=== PATIENT | male | born 1975 ===

== ENCOUNTER 2023-05-14 21:14 | Inpatient (IN) | payer OTHER ==
[2023-05-14 21:28] VITALS: BMI 50.6
[2023-05-14] MEDS: ALBUTEROL SO4 2.5/IPRATROPIUM 0.5 INH SOL 3 ML VIAL.NEB. NEB SCH ×4 (23:13→23:57)
[2023-05-14 23:25] LABS: BASO % 0.3 % (0-2.0); EOS % 0.6 % (0-4.5); HEMOGLOBIN 15.3 GM/dL (11.7-16.9); LYMPH % 20.9 % (8-40); MCH 28.7 pg (25.7-33.7); MCHC 34.1 g/dl (32.0-35.9); MEAN CELL VOLUME 84.3 fl (80-96); MEAN PLT VOLUME 7.1 fl (7.5-11.1); MONO % 8.2 % (3.8-10.2); PLATELET COUNT 322 10^3/uL (134-434); RBC 5.34 M/mm3 (4.00-5.60); RDW 14.5 % (11.9-15.9); WHITE BLOOD COUNT 9.2 K/mm3 (4.0-10.0)
[2023-05-14 23:43] LABS: METHADONE, UR NEGATIVE (NEGATIVE); POTASSIUM 4.8 mmol/L (3.5-5.1); URINE AMPHETAMINES NEGATIVE (NEGATIVE); URINE BARBITURATES NEGATIVE (NEGATIVE)
[2023-05-14 23:44] LABS: PHENCYCLIDINE,URINE NEGATIVE (NEGATIVE); URINE BENZODIAZEPINES NEGATIVE (NEGATIVE)
[2023-05-14 23:47] LABS: CALCIUM 8.6 mg/dL (8.5-10.1)
[2023-05-14 23:48] LABS: ALBUMIN 3.1 g/dl (3.4-5.0); BLOOD UREA NITROGEN 13.8 mg/dL (7-18)
[2023-05-14 23:51] LABS: CREATININE 0.9 mg/dL (0.55-1.3)
[2023-05-14 23:53] LABS: TOT PROT 8.4 g/dl (6.4-8.2)
[2023-05-14 23:59] LABS: COCAINE, UR POSITIVE (NEGATIVE); OPIATES, URI POSITIVE (NEGATIVE)
[2023-05-15 00:32] LABS: BILIRUBIN,TOTAL 0.3 mg/dL (0.2-1)
[2023-05-15 02:38] LABS: EPI CELLS 5 /uL (0-25.1); HYALINE CASTS 3 /uL (0-3.1); PH,URINE 6.5 (5.0-8.0); URINE APPEARANCE CLOUDY; URINE BACTERIA 2875 /uL (0-1359); URINE BILIRUBIN NEGATIVE (NEGATIVE); URINE COLOR YELLOW; URINE GLUCOSE (UA) NEGATIVE (NEGATIVE); URINE KETONE NEGATIVE (NEGATIVE); URINE LEUK ESTERASE 3+ (NEGATIVE); URINE NITRITE POSITIVE (NEGATIVE); URINE PROTEIN 1+ (NEGATIVE); URINE RBC 221 /uL (0-23.9); URINE UROBILINOGEN 0.2 mg/dL (0.2-1.0); URINE WBC 3339 /uL (0-25.8)
[2023-05-15] MEDS ORDERED: CEFTRIAXONE 1 GM/50 ML BAG ONE ×2 (04:38→10:03)
[2023-05-15] MEDS ORDERED: ACETAMINOPHEN 500 MG TABLET (FP) PO PRN (09:40)
[2023-05-15] MEDS ORDERED: MELATONIN 5 MG TABLETS PO PRN (09:40)
[2023-05-15] MEDS ORDERED: METOCLOPRAMIDE HCL INJECTION 10 MG/2 ML VIAL IVPUSH ONE (09:52)
[2023-05-15] MEDS ORDERED: METOCLOPRAMIDE HCL INJECTION 10 MG/2 ML VIAL ONE (10:03)
[2023-05-15] MEDS ORDERED: ENOXAPARIN NA (PORCINE) 40 MG/0.4 ML DISP.SYRIN SQ ONE (10:03)
[2023-05-15] MEDS: CEFTRIAXONE 1 GM in DEXTROSE 5%-WATER - 50 ML IVPB SCH (10:04)
[2023-05-15] MEDS: ENOXAPARIN NA (PORCINE) 40 MG/0.4 ML DISP.SYRIN SQ SCH (10:04)
[2023-05-15] MEDS: INSULIN SLIDING SCALE (NOVOLOG) 1 VIAL SQ SCH ×3 (10:41→22:35)
[2023-05-16] MEDS: INSULIN SLIDING SCALE (NOVOLOG) 1 VIAL SQ SCH ×4 (06:44→21:49)
[2023-05-16 09:49] LABS: BASO % 0.7 % (0-2.0); EOS % 0.4 % (0-4.5); HEMATOCRIT 45.4 % (35.4-49); HEMOGLOBIN 15.4 GM/dL (11.7-16.9); LYMPH % 32.7 % (8-40); MCH 28.7 pg (25.7-33.7); MCHC 33.9 g/dl (32.0-35.9); MEAN CELL VOLUME 84.7 fl (80-96); MONO % 7.9 % (3.8-10.2); NEUT % 58.3 % (42.8-82.8); PLATELET COUNT 317 10^3/uL (134-434); RBC 5.36 M/mm3 (4.00-5.60); RDW 14.8 % (11.9-15.9); WHITE BLOOD COUNT 7.6 K/mm3 (4.0-10.0)
[2023-05-16 10:24] LABS: ALBUMIN 3.2 g/dl (3.4-5.0); BILIRUBIN,TOTAL 0.6 mg/dL (0.2-1); BLOOD UREA NITROGEN 14.6 mg/dL (7-18); CALCIUM 8.7 mg/dL (8.5-10.1); CREATININE 0.7 mg/dL (0.55-1.3); MAGNESIUM 2.1 mg/dL (1.8-2.4); PHOSPHOROUS 2.8 mg/dL (2.5-4.9); TOT PROT 8.5 g/dl (6.4-8.2)
[2023-05-16] MEDS ORDERED: CEFTRIAXONE 1 GM in DEXTROSE 5%-WATER - 50 ML IVPB SCH (11:00)
[2023-05-16] MEDS: ENOXAPARIN NA (PORCINE) 40 MG/0.4 ML DISP.SYRIN SQ SCH (12:04)
[2023-05-16] MEDS: CEFTRIAXONE 1 GM in DEXTROSE 5%-WATER - 50 ML IVPB SCH (14:03)
[2023-05-16] MEDS: PIPERACILLIN/TAZOB 3.375 GM 3.375 GM in DEXTROSE 5%-WATER - 50 ML IVPB SCH ×3 (14:56→21:44)
[2023-05-16] MEDS: GABAPENTIN 100 MG CAPSULE PO SCH (21:44)
[2023-05-17] MEDS: PIPERACILLIN/TAZOB 3.375 GM 3.375 GM in DEXTROSE 5%-WATER - 50 ML IVPB SCH ×3 (06:34→21:25)
[2023-05-17] MEDS: GABAPENTIN 100 MG CAPSULE PO SCH ×3 (06:34→21:25)
[2023-05-17] MEDS: INSULIN SLIDING SCALE (NOVOLOG) 1 VIAL SQ SCH ×4 (06:38→21:30)
[2023-05-17 08:20] LABS: BASO % 0.4 % (0-2.0); HEMATOCRIT 41.9 % (35.4-49); HEMOGLOBIN 14.3 GM/dL (11.7-16.9); LYMPH % 28.5 % (8-40); MCH 28.9 pg (25.7-33.7); MCHC 34.2 g/dl (32.0-35.9); MEAN CELL VOLUME 84.8 fl (80-96); MEAN PLT VOLUME 7.1 fl (7.5-11.1); MONO % 12.5 % (3.8-10.2); NEUT % 57.6 % (42.8-82.8); PLATELET COUNT 300 10^3/uL (134-434); RBC 4.95 M/mm3 (4.00-5.60); RDW 14.7 % (11.9-15.9); WHITE BLOOD COUNT 5.7 K/mm3 (4.0-10.0)
[2023-05-17 08:47] LABS: CALCIUM 8.4 mg/dL (8.5-10.1)
[2023-05-17 08:51] LABS: BLOOD UREA NITROGEN 16.8 mg/dL (7-18); CREATININE 0.7 mg/dL (0.55-1.3); PHOSPHOROUS 3.1 mg/dL (2.5-4.9)
[2023-05-17 08:52] LABS: TOT PROT 8.1 g/dl (6.4-8.2)
[2023-05-17 08:53] LABS: BILIRUBIN,TOTAL 0.6 mg/dL (0.2-1)
[2023-05-17] MEDS: ENOXAPARIN NA (PORCINE) 40 MG/0.4 ML DISP.SYRIN SQ SCH (10:13)
[2023-05-17] MEDS ORDERED: VANCOMYCIN 250 MG/5 ML ORAL SOLUTION PO SCH (17:05)
[2023-05-17] MEDS: VANCOMYCIN ORAL SOLUTION 125 MG/2.5 ML PO SCH (19:04)
[2023-05-18] MEDS: VANCOMYCIN ORAL SOLUTION 125 MG/2.5 ML PO SCH ×4 (01:58→17:08)
[2023-05-18] MEDS: GABAPENTIN 100 MG CAPSULE PO SCH ×3 (06:28→21:48)
[2023-05-18] MEDS: PIPERACILLIN/TAZOB 3.375 GM 3.375 GM in DEXTROSE 5%-WATER - 50 ML IVPB SCH ×3 (06:28→21:48)
[2023-05-18] MEDS: INSULIN SLIDING SCALE (NOVOLOG) 1 VIAL SQ SCH ×4 (06:32→21:47)
[2023-05-18 08:09] LABS: BASO % 0.9 % (0-2.0); EOS % 1.8 % (0-4.5); HEMOGLOBIN 14.4 GM/dL (11.7-16.9); LYMPH % 34.7 % (8-40); MCH 28.4 pg (25.7-33.7); MCHC 32.1 g/dl (32.0-35.9); MEAN CELL VOLUME 88.5 fl (80-96); MEAN PLT VOLUME 7.6 fl (7.5-11.1); MONO % 11.5 % (3.8-10.2); NEUT % 51.1 % (42.8-82.8); PLATELET COUNT 304 10^3/uL (134-434); RBC 5.09 M/mm3 (4.00-5.60); RDW 14.8 % (11.9-15.9); WHITE BLOOD COUNT 6.5 K/mm3 (4.0-10.0)
[2023-05-18 08:23] LABS: POTASSIUM 4.4 mmol/L (3.5-5.1)
[2023-05-18 08:32] LABS: CALCIUM 8.6 mg/dL (8.5-10.1)
[2023-05-18 08:33] LABS: ALBUMIN 3.1 g/dl (3.4-5.0); BLOOD UREA NITROGEN 14.8 mg/dL (7-18); MAGNESIUM 2.1 mg/dL (1.8-2.4)
[2023-05-18 08:35] LABS: CREATININE 0.7 mg/dL (0.55-1.3); PHOSPHOROUS 3.3 mg/dL (2.5-4.9)
[2023-05-18 08:37] LABS: BILIRUBIN,TOTAL 0.5 mg/dL (0.2-1); TOT PROT 8.4 g/dl (6.4-8.2)
[2023-05-18] MEDS: ENOXAPARIN NA (PORCINE) 40 MG/0.4 ML DISP.SYRIN SQ SCH (11:11)
[2023-05-18] MEDS ORDERED: IBUPROFEN 600 MG TABLET (FP) PO PRN ×2 (16:05→16:06)
[2023-05-19] MEDS: VANCOMYCIN ORAL SOLUTION 125 MG/2.5 ML PO SCH ×4 (00:51→17:11)
[2023-05-19] MEDS: GABAPENTIN 100 MG CAPSULE PO SCH ×3 (06:15→23:10)
[2023-05-19] MEDS: PIPERACILLIN/TAZOB 3.375 GM 3.375 GM in DEXTROSE 5%-WATER - 50 ML IVPB SCH ×3 (06:15→23:10)
[2023-05-19] MEDS: INSULIN SLIDING SCALE (NOVOLOG) 1 VIAL SQ SCH ×4 (06:17→23:17)
[2023-05-19] MEDS ORDERED: INSULIN (NOVOLOG) ASPART 100 UNITS/ML 10ML VIAL ONE (06:47)
[2023-05-19] MEDS ORDERED: INSULIN (LEVEMIR) 100 UNITS/ML UNITS SQ ONE (06:47)
[2023-05-19] MEDS: ENOXAPARIN NA (PORCINE) 40 MG/0.4 ML DISP.SYRIN SQ SCH (09:18)
[2023-05-19] MEDS ORDERED: HYDROmorphone HCL 2 MG TABLET PO PRN (09:23)
[2023-05-19] MEDS: HYDROmorphone HCL 2 MG TABLET PO PRN (17:19)
[2023-05-19] MEDS ORDERED: PIPERACILLIN/TAZOBACTAM 3.375 GM VIAL IVPB ONE (22:52)
[2023-05-20] MEDS: VANCOMYCIN ORAL SOLUTION 125 MG/2.5 ML PO SCH ×4 (00:41→17:42)
[2023-05-20] MEDS: HYDROmorphone HCL 2 MG TABLET PO PRN ×3 (00:58→19:47)
[2023-05-20] MEDS: PIPERACILLIN/TAZOB 3.375 GM 3.375 GM in DEXTROSE 5%-WATER - 50 ML IVPB SCH ×3 (05:55→21:52)
[2023-05-20] MEDS: GABAPENTIN 100 MG CAPSULE PO SCH ×3 (05:56→21:52)
[2023-05-20] MEDS: INSULIN SLIDING SCALE (NOVOLOG) 1 VIAL SQ SCH ×4 (06:21→21:52)
[2023-05-20 08:31] LABS: BASO % 0.4 % (0-2.0); HEMATOCRIT 41.8 % (35.4-49); HEMOGLOBIN 13.9 GM/dL (11.7-16.9); LYMPH % 42.3 % (8-40); MCH 28.6 pg (25.7-33.7); MCHC 33.2 g/dl (32.0-35.9); MEAN CELL VOLUME 86.3 fl (80-96); MEAN PLT VOLUME 7.4 fl (7.5-11.1); NEUT % 42.3 % (42.8-82.8); PLATELET COUNT 311 10^3/uL (134-434); RBC 4.84 M/mm3 (4.00-5.60); RDW 14.5 % (11.9-15.9); WHITE BLOOD COUNT 7.7 K/mm3 (4.0-10.0)
[2023-05-20 08:44] LABS: POTASSIUM 3.9 mmol/L (3.5-5.1)
[2023-05-20 08:47] LABS: BLOOD UREA NITROGEN 12.4 mg/dL (7-18)
[2023-05-20 08:48] LABS: CALCIUM 8.4 mg/dL (8.5-10.1)
[2023-05-20 08:49] LABS: MAGNESIUM 1.9 mg/dL (1.8-2.4)
[2023-05-20 08:50] LABS: CREATININE 0.7 mg/dL (0.55-1.3)
[2023-05-20 08:51] LABS: TOT PROT 7.8 g/dl (6.4-8.2)
[2023-05-20 08:52] LABS: BILIRUBIN,TOTAL 0.3 mg/dL (0.2-1)
[2023-05-20] MEDS: ENOXAPARIN NA (PORCINE) 40 MG/0.4 ML DISP.SYRIN SQ SCH (09:59)
[2023-05-20] MEDS ORDERED: DEXTROSE 5%-0.45% SALINE 1,000 ML IV ONE (13:00)
[2023-05-21] MEDS: VANCOMYCIN ORAL SOLUTION 125 MG/2.5 ML PO SCH ×4 (00:43→17:03)
[2023-05-21] MEDS: HYDROmorphone HCL 2 MG TABLET PO PRN ×3 (02:22→17:09)
[2023-05-21] MEDS: PIPERACILLIN/TAZOB 3.375 GM 3.375 GM in DEXTROSE 5%-WATER - 50 ML IVPB SCH (06:18)
[2023-05-21] MEDS: GABAPENTIN 100 MG CAPSULE PO SCH ×3 (06:19→21:35)
[2023-05-21] MEDS: INSULIN SLIDING SCALE (NOVOLOG) 1 VIAL SQ SCH ×4 (06:30→21:59)
[2023-05-21 10:37] LABS: BASO % 0.7 % (0-2.0); HEMATOCRIT 41.5 % (35.4-49); HEMOGLOBIN 14.2 GM/dL (11.7-16.9); LYMPH % 36.7 % (8-40); MCH 28.9 pg (25.7-33.7); MCHC 34.3 g/dl (32.0-35.9); MEAN CELL VOLUME 84.2 fl (80-96); MEAN PLT VOLUME 6.9 fl (7.5-11.1); NEUT % 50.6 % (42.8-82.8); PLATELET COUNT 309 10^3/uL (134-434); RBC 4.93 M/mm3 (4.00-5.60); RDW 14.8 % (11.9-15.9)
[2023-05-21 10:51] LABS: POTASSIUM 3.9 mmol/L (3.5-5.1)
[2023-05-21 10:53] LABS: CALCIUM 8.4 mg/dL (8.5-10.1)
[2023-05-21 10:54] LABS: MAGNESIUM 1.9 mg/dL (1.8-2.4)
[2023-05-21 10:56] LABS: BLOOD UREA NITROGEN 10.4 mg/dL (7-18)
[2023-05-21 10:57] LABS: CREATININE 0.6 mg/dL (0.55-1.3)
[2023-05-21 10:58] LABS: BILIRUBIN,TOTAL 0.4 mg/dL (0.2-1); TOT PROT 7.7 g/dl (6.4-8.2)
[2023-05-21] MEDS: ENOXAPARIN NA (PORCINE) 40 MG/0.4 ML DISP.SYRIN SQ SCH (11:10)
[2023-05-22] MEDS: VANCOMYCIN ORAL SOLUTION 125 MG/2.5 ML PO SCH ×3 (00:39→11:42)
[2023-05-22] MEDS: HYDROmorphone HCL 2 MG TABLET PO PRN ×3 (01:51→15:44)
[2023-05-22] MEDS: GABAPENTIN 100 MG CAPSULE PO SCH ×3 (06:17→21:47)
[2023-05-22] MEDS: INSULIN SLIDING SCALE (NOVOLOG) 1 VIAL SQ SCH ×4 (06:23→21:59)
[2023-05-22 09:39] LABS: BASO % 0.5 % (0-2.0); EOS % 3.1 % (0-4.5); HEMATOCRIT 43.4 % (35.4-49); HEMOGLOBIN 14.6 GM/dL (11.7-16.9); LYMPH % 43.5 % (8-40); MCH 29.1 pg (25.7-33.7); MCHC 33.6 g/dl (32.0-35.9); MEAN CELL VOLUME 86.5 fl (80-96); MEAN PLT VOLUME 7.5 fl (7.5-11.1); MONO % 9.5 % (3.8-10.2); NEUT % 43.4 % (42.8-82.8); PLATELET COUNT 322 10^3/uL (134-434); RBC 5.01 M/mm3 (4.00-5.60); RDW 14.7 % (11.9-15.9); WHITE BLOOD COUNT 7.1 K/mm3 (4.0-10.0)
[2023-05-22 09:53] LABS: POTASSIUM 3.7 mmol/L (3.5-5.1)
[2023-05-22 09:56] LABS: ALBUMIN 3.2 g/dl (3.4-5.0); CALCIUM 8.7 mg/dL (8.5-10.1)
[2023-05-22 09:57] LABS: BLOOD UREA NITROGEN 11.1 mg/dL (7-18); MAGNESIUM 1.9 mg/dL (1.8-2.4)
[2023-05-22 09:59] LABS: CREATININE 0.6 mg/dL (0.55-1.3)
[2023-05-22 10:01] LABS: BILIRUBIN,TOTAL 0.4 mg/dL (0.2-1)
[2023-05-22] MEDS: metroNIDAZOLE 250 MG TABLET PO SCH ×2 (14:48→21:46)
[2023-05-22 18:33] VITALS: RESP 18
[2023-05-23] MEDS: metroNIDAZOLE 250 MG TABLET PO SCH ×3 (06:07→21:37)
[2023-05-23] MEDS: GABAPENTIN 100 MG CAPSULE PO SCH ×3 (06:07→21:38)
[2023-05-23] MEDS: HYDROmorphone HCL 2 MG TABLET PO PRN ×3 (06:12→18:35)
[2023-05-23] MEDS: INSULIN SLIDING SCALE (NOVOLOG) 1 VIAL SQ SCH ×4 (06:33→21:41)
[2023-05-23 10:01] LABS: BASO % 0.3 % (0-2.0); HEMATOCRIT 43.4 % (35.4-49); HEMOGLOBIN 14.8 GM/dL (11.7-16.9); LYMPH % 39.9 % (8-40); MCH 28.6 pg (25.7-33.7); MEAN CELL VOLUME 84.2 fl (80-96); MONO % 10.7 % (3.8-10.2); NEUT % 46.1 % (42.8-82.8); PLATELET COUNT 341 10^3/uL (134-434); RBC 5.16 M/mm3 (4.00-5.60); RDW 15.1 % (11.9-15.9); WHITE BLOOD COUNT 7.1 K/mm3 (4.0-10.0)
[2023-05-23 10:24] LABS: POTASSIUM 3.9 mmol/L (3.5-5.1)
[2023-05-23 10:29] LABS: ALBUMIN 3.4 g/dl (3.4-5.0); BLOOD UREA NITROGEN 15.3 mg/dL (7-18); CALCIUM 8.8 mg/dL (8.5-10.1)
[2023-05-23 10:32] LABS: CREATININE 0.7 mg/dL (0.55-1.3)
[2023-05-23 10:33] LABS: BILIRUBIN,TOTAL 0.4 mg/dL (0.2-1); TOT PROT 8.2 g/dl (6.4-8.2)
[2023-05-23 15:41] VITALS: BP 124/74; PULSE 78; TEMP 98
[2023-05-23] MEDS ORDERED: INSULIN (NOVOLOG) ASPART 100 UNITS/ML 10ML VIAL ONE (21:11)
== END 2023-05-24 00:20 | DRG 812 ==
LOC: JER 21:14 → JERBED 05-15 04:33 → J6S 05-15 15:54 → OBSVTOIN 05-17 14:34 → J6S 05-20 18:54
PROVIDERS: ADMIT Internal Medicine; ATTEND Internal Medicine
DX: T40.2X4A Poisoning by other opioids, undetermined, initial encounter (principal); G92.9 Unspecified toxic encephalopathy; N31.9 Neuromuscular dysfunction of bladder, unspecified; E11.9 Type 2 diabetes mellitus without complications; N39.0 Urinary tract infection, site not specified; T83.511A Infection and inflammatory reaction due to indwelling urethral catheter, initial encounter; G82.20 Paraplegia, unspecified; T40.5X4A Poisoning by cocaine, undetermined, initial encounter; A04.72 Enterocolitis due to Clostridium difficile, not specified as recurrent; B96.5 Pseudomonas (aeruginosa) (mallei) (pseudomallei) as the cause of diseases classified elsewhere; B96.20 Unspecified Escherichia coli [E. coli] as the cause of diseases classified elsewhere; R94.5 Abnormal results of liver function studies; G89.29 Other chronic pain; Z93.3 Colostomy status; Z89.611 Acquired absence of right leg above knee; Z89.612 Acquired absence of left leg above knee; Z74.01 Bed confinement status; Y92.89 Other specified places as the place of occurrence of the external cause
CPT/HCPCS: 36415; 71045-TC-FY; 74018-TC-FY; 80053; 80307; 81003; 82962; 83735; 84100; 84484; 85025; 87086; 87186; 87324; 87449; 87493; 93005; 93010; 99285-25; G0378